=== PATIENT | female | born 1935 ===

== ENCOUNTER 2016-11-02 14:57 | Emergency (ER) | payer BC, MEDICARE ==
[2016-11-02] MEDS ORDERED: Sodium Chloride 0.9% 10 ML Syringe FLUSH PRN (15:07)
[2016-11-02] MEDS ORDERED: HYDROmorphone 0.5 MG/0.5 ML Syringe IVPUSH ONE ×2 (15:08→16:16)
--- NOTE | 2016-11-02 15:09 | EDM.PDOC ---
ED HPI Trauma - General Chief Complaint: Lower Extremity Injury/Pain Stated Complaint: Fall, left hip pain Time Seen by Provider: 11/02/16 15:00 Source: Reports: Patient, RN notes reviewed History Limitations: Reports: No limitations - History of Present Illness INITIAL COMMENTS - FREE TEXT/NARRATIVE: 81 year old female is brought to the ED today via [facility] after a fall. She has left hip pain with external rotation. The patient says she was talking on the phone when she turned and fell. She says she lost her balance. She denies dizziness, vertigo, or loss of consciousness. She has a history of osteoporosis and had a pubic bone fracture in 2014. She reports severe pain to the left hip. She denies recent illness, chest pain, shortness of breath, or cough. Her PCP is Dr. Kaur. Allergies/ADRs: Allergies codeine Allergy (Verified 11/02/16 15:04) Itching metronidazole [From Flagyl] Allergy (Verified 11/02/16 15:04) Itching omeprazole [From Prilosec] Allergy (Verified 11/02/16 15:04) Itching omeprazole magnesium [From Prilosec] Allergy (Verified 11/02/16 15:04) Itching Sulfa (Sulfonamide Antibiotics) Allergy (Verified 11/02/16 15:04) Hives Home Medications: Ambulatory Orders .Acidophillous 1 cap PO DAILY 12/26/13 [Confirmed 12/26/13] ALPRAZolam [Alprazolam ODT] 0.5 mg PO DAILY 12/26/13 [Confirmed 12/26/13] Ascorbic Acid [Vitamin C] 500 mg PO BID 12/26/13 [Confirmed 12/26/13] Ca/D3/Mag#11/Zinc/Electrode Cleaner/Van/Bor [Caltrate 600+D Plus Tablet] 600 mg PO BID [Confirmed 12/26/13] Cholecalciferol (Vitamin D3) [Vitamin D3] 1,000 unit PO DAILY 12/26/13 [ Confirmed 12/26/13] Cholecalciferol (Vitamin D3) [Vitamin D3] 400 units PO DAILY 12/26/13 [ Confirmed 12/26/13] Cranberry Extract [Cranberry] 250 mg PO 12/26/13 [Confirmed 12/26/13] Cyanocobalamin (Vitamin B12) [Vitamin B12] 1,000 mcg PO DAILY 12/26/13 [ Confirmed 12/26/13] Estrogens, Conjugated [Premarin Vaginal Crm] 1 applic VAG MOWEFR 12/26/13 [ Confirmed 12/26/13] Eye Vitamin 1 tab PO BID 12/26/13 [Confirmed 12/26/13] Nitrofurantoin Macrocrystal [Macrodantin] 50 mg PO Q3D 12/26/13 [Confirmed 12/26] Pantoprazole [ProTONIX] 40 mg PO DAILY 12/26/13 [Confirmed 12/26/13] Potassium Chloride 10 meq PO QID 12/26/13 [Confirmed 12/26/13] Sennosides/Docusate Sodium [Senna-S] 2 tab PO DAILY 12/26/13 [Confirmed 12/26/13 ] Triamterene 0.5 tab PO DAILY 12/26/13 [Confirmed 12/26/13] Zoledronic Acid in Water [Reclast] 5 mg IV Q365D 12/26/13 [Confirmed 12/26/13] Acetaminophen/oxyCODONE [Percocet 325-5 MG] 1 - 2 tab PO Q4HR PRN #40 tab Sennosides/Docusate Sodium [Senna S Tablet] 2 tab PO BID #30 tablet 12/29/13 Acetaminophen with Codeine [Tylenol with Codeine #3 Tablet] 1 each PO Q8HR PRN # 30 tablet 05/03/15 Past Medical History Other Oncologic History: kidney cancer Social & Family History - Tobacco Use Smoking Status *Q: Never Smoker - Alcohol Use Days Per Week of Alcohol Use: 1 - Recreational Drug Use Recreational Drug Use: No Review of Systems - Review of Systems Review Of Systems: See Below Constitutional: Reports: no symptoms. Denies: chills, fever Respiratory: Reports: No Symptoms. Denies: Shortness of Breath, Cough Cardiovascular: Reports: no symptoms. Denies: chest pain, lightheadedness, syncope GI/Abdominal: Reports: No symptoms. Denies: Abdominal pain Musculoskeletal: Reports: joint pain (left hip) Skin: Reports: no symptoms Neurological: Reports: Other (tremor - chronic ). Denies: Confusion, Numbness, Tingling Trauma Exam - Physical Exam Exam: See Below Exam Limited By: No limitations General Appearance: Reports: alert, WD/WN, anxious, moderate distress Head: Reports: atraumatic, normocephalic Eyes: bilateral eye: EOMI, PERRL Respiratory Exam: Reports: no respiratory distress, lungs clear, normal breath sounds Cardiovascular: Reports: regular rate, rhythm, no murmur GI/Abdominal: Reports: normal bowel sounds, soft, non tender Extremities: Reports: other (pain with palpation to left hip. external rotation noted. patient is guarded during exam. CMS is intact. ) Neurologic: Reports: no motor/sensory deficits, alert, normal mood/affect, other (tremor noted to upper extremities - this is chronic ) EKG INTERPRETATION EKG Date: 11/02/16 Time: 17:22 Rhythm: NSR Rate (beats/min): 74 Adrian: normal P-wave: present QRS: normal ST-T: normal QT: normal Course - Vital Signs Last Recorded V/S: Last Vital Signs Temp 99.5 F 11/02/16 15:05 Pulse 72 11/02/16 15:05 Resp 18 11/02/16 15:05 BP 155/58 H 11/02/16 15:05 Pulse Ox 100 11/02/16 15:05 - Orders/Labs/Meds Orders: Active Orders 24 hr Category Date Time Status EKG 12 Lead [EKG Documentation Completion] [RC] STAT Care 11/02/16 17:05 Ordered Insert Goodman Catheter [Insert Urinary Catheter] [OM.PC] Care 11/02/16 17:00 Ordered Q24H Peripheral IV Care [RC] . DIRECTED Care 11/02/16 15:07 Active Urinary Catheter Assessment [RC] ASDIRECTED Care 11/02/16 16:49 Active Hip Min 2V or 3V w Pelvis Lt [CR] Stat Exams 11/02/16 15:07 Taken UA W/MICROSCOPIC [URIN] Stat Lab 11/02/16 17:00 Ordered Sodium Chloride 0.9% [Normal Saline] 1,000 ml Med 11/02/16 17:03 Ordered IV ONETIME Sodium Chloride 0.9% [Saline Flush] Med 11/02/16 15:07 Active 10 ml FLUSH ASDIRECTED PRN Peripheral IV Insertion Adult [OM.PC] Stat Oth 11/02/16 15:07 Ordered Medication Orders Sodium Chloride (Normal Saline) 1,000 mls @ 75 mls/hr IV ONETIME ONE Stop: 11/03/16 06:22 Last Admin: 11/02/16 17:11 Dose: 75 mls/hr Sodium Chloride (Saline Flush) 10 ml FLUSH ASDIRECTED PRN PRN Reason: Keep Vein Open Last Admin: 11/02/16 15:24 Dose: 10 ml Labs: Laboratory Tests 11/02/16 11/02/16 11/02/16 Range/Units 15:14 15:44 16:55 WBC 10.39 H (3.98-10.04) K/mm3 RBC 3.64 L (3.98-5.22) M/mm3 Hgb 11.6 (11.2-15.7) gm/L Hct 35.7 (34.1-44.9) % MCV 98.1 H (79.4-94.8) fl MCH 31.9 (25.6-32.2) pg MCHC 32.5 (32.2-35.5) g/dl RDW Std Deviation 42.3 (36.4-46.3) fL Plt Count 178 L (182-369) K/mm3 MPV 10.4 (9.4-12.3) fl Neut % (Auto) 73.1 H (34.0-71.1) % Lymph % (Auto) 16.6 L (19.3-51.7) % Wilkinson % (Auto) 9.2 (4.7-12.5) % Eos % (Auto) 0.7 (0.7-5.8) Baso % (Auto) 0.2 (0.1-1.2) % Neut # (Auto) 7.60 H (1.56-6.13) K/mm3 Lymph # (Auto) 1.72 (1.18-3.74) K/mm3 Wilkinson # (Auto) 0.96 H (0.24-0.36) K/mm3 Eos # (Auto) 0.07 (0.04-0.36) K/mm3 Baso # (Auto) 0.02 (0.01-0.08) K/mm3 Sodium 143 (136-145) mEq/L Potassium 3.6 (3.5-5.1) mEq/L Chloride 104 (98-107) mEq/L Carbon Dioxide 31 (21-32) mEq/L Anion Gap 11.6 (5-15) BUN 19 H (7-18) mg/dL Creatinine 1.3 H (0.55-1.02) mg/dL Est Cr Clr Drug Dosing 28.31 mL/min Estimated GFR (MDRD) 39 (>60) mL/min BUN/Creatinine Ratio 14.6 (14-18) Glucose 141 H (83-115) mg/dL Calcium 9.0 (8.5-10.1) mg/dL Total Bilirubin 0.3 (0.2-1.0) mg/dL AST 17 (15-37) U/L ALT 17 (14-59) U/L Alkaline Phosphatase 78 (46-116) U/L Total Protein 7.1 (6.4-8.2) g/dl Albumin 3.7 (3.4-5.0) g/dl Globulin 3.4 gm/dL Albumin/Globulin Ratio 1.1 (1-2) Urine Color Light yellow (Yellow) Urine Appearance Cloudy H (Clear) Urine pH 7.5 (5.0-8.0) Ur Specific [place] 1.020 (1.005-1.030) Urine Protein 1+ H (Negative) Urine Glucose (UA) Negative (Negative) Urine Ketones Negative (Negative) Urine Occult Blood Negative (Negative) Urine Nitrite Negative (Negative) Urine Bilirubin Negative (Negative) Urine Urobilinogen 0.2 (0.2-1.0) Ur Leukocyte Esterase Negative (Negative) Meds: Medications Generic Name Dose Route Start Last Admin Trade Name Freq PRN Reason Stop Dose Admin Sodium Chloride 1,000 mls @ 75 mls/hr 11/02/16 17:03 11/02/16 17:11 Normal Saline IV 11/03/16 06:22 75 mls/hr ONETIME ONE Administration Sodium Chloride 10 ml 11/02/16 15:07 11/02/16 15:24 Saline Flush FLUSH 10 ml ASDIRECTED PRN Administration Keep Vein Open Discontinued Medications Generic Name Dose Route Start Last Admin Trade Name Freq PRN Reason Stop Dose Admin Hydromorphone HCl 0.5 mg 11/02/16 15:08 11/02/16 15:24 Dilaudid IVPUSH 11/02/16 15:09 0.5 mg ONETIME ONE Administration Hydromorphone HCl 0.5 mg 11/02/16 16:16 11/02/16 16:33 Dilaudid IVPUSH 11/02/16 16:17 0.5 mg ONETIME ONE Administration - Re-Assessments/Exams Free Text/Narrative Re-Assessment/Exam: CBC reveals normal WBC and H&H. CMP reveals mildly elevated kidney function. Otherwise normal. EKG reveals sinus rhythm 74 bpm with LVH pattern X-rays reveal intertrochanteric fracture of the left hip. We have no orthopedic coverage today. The patient is a [facility] patient so will coordinate transfer to [facility]. 1550 Spoke to [facility]. They paged Dr. Carpenter, ortho pest control pilot, but he was in a case. They will call me back 1650 Had not heard back, again phoned [facility]. I was able to speak with Dr. Carpenter who accepted care of the patient. I then spoke to Hospitalist Dr. Trevino who also accepted patient. She will be a direct admit. Departure - Departure Time of Disposition: 17:30 Disposition: DC/Tfer to [facility] 02 Condition: fair Clinical Impression: Fracture of left hip Qualifiers: Encounter type: initial encounter Fracture type: closed Qualified Code(s): S72.002A - Fracture of unspecified part of neck of left femur, initial encounter for closed fracture Forms: ED Department Discharge - My Orders Last 24 Hours: My Active Orders 11/02/16 15:07 Peripheral IV Care [RC] . DIRECTED Hip Min 2V or 3V w Pelvis Lt [CR] Stat Sodium Chloride 0.9% [Saline Flush] 10 ml FLUSH ASDIRECTED PRN Peripheral IV Insertion Adult [OM.PC] Stat 11/02/16 16:49 Urinary Catheter Assessment [RC] ASDIRECTED 11/02/16 17:00 Insert Goodman Catheter [Insert Urinary Catheter] [OM.PC] Q24H UA W/MICROSCOPIC [URIN] Stat 11/02/16 17:03 Sodium Chloride 0.9% [Normal Saline] 1,000 ml IV ONETIME 11/02/16 17:05 EKG 12 Lead [EKG Documentation Completion] [RC] STAT - Assessment/Plan Last 24 Hours: My Active Orders 11/02/16 15:07 Peripheral IV Care [RC] . DIRECTED Hip Min 2V or 3V w Pelvis Lt [CR] Stat Sodium Chloride 0.9% [Saline Flush] 10 ml FLUSH ASDIRECTED PRN Peripheral IV Insertion Adult [OM.PC] Stat 11/02/16 16:49 Urinary Catheter Assessment [RC] ASDIRECTED 11/02/16 17:00 Insert Goodman Catheter [Insert Urinary Catheter] [OM.PC] Q24H UA W/MICROSCOPIC [URIN] Stat 11/02/16 17:03 Sodium Chloride 0.9% [Normal Saline] 1,000 ml IV ONETIME 11/02/16 17:05 EKG 12 Lead [EKG Documentation Completion] [RC] STAT
[2016-11-02] MEDS ORDERED: Sodium Chloride 0.9% 1,000 ML IV ONE (17:03)
[2016-11-02 18:22] VITALS: BP 156/65
--- NOTE | 2016-11-03 10:32 | CR ---
Pelvis and left hip: AP view of the pelvis was obtained as well as AP and lateral views of the left hip. Angulated left hip fracture is seen which is intertrochanteric in location. Old pubic rami fracture noted on the left side. Transitional segment with pseudoarticulation noted at the lumbosacral junction as an incidental note. Bony structures are osteopenic. Impression: 1. Varus angulated intertrochanteric fracture within the left hip. 2. Other incidental findings. Diagnostic code #3
== END 2016-11-02 18:16 ==
LOC: JD.ED 14:57
DX: S72.142A Displaced intertrochanteric fracture of left femur, initial encounter for closed fracture (principal); Z88.5 Allergy status to narcotic agent; Z88.2 Allergy status to sulfonamides; Z88.8 Allergy status to other drugs, medicaments and biological substances; W19.XXXA Unspecified fall, initial encounter
CPT/HCPCS: 36415; 51702; 73502; 80053; 81001; 85025; 93005; 96361; 96374; 99285; J1170; J7040; J7050; 99284